=== PATIENT | female | born 1940 | race Caucasian/White ===

== ENCOUNTER 2018-10-15 15:37 | Emergency (ER) | payer OTHER ==
[~2018-10-15] VITALS: Ht 152.4 cm; Wt 56.8 kg
[2018-10-15 15:49] VITALS: Ht 152.4 cm; Wt 56.8 kg
--- NOTE | 2018-10-15 20:15 | ERD ---
ER Documentation Chief Complaint Chief Complaint COUGH X 2 DAYS HPI 78-year-old female, with history of diabetes and hypertension, presents to the emergency department, complaining of worsening of cough and upper respiratory symptoms for 2 days including productive cough, subjective fever, chills and general malaise. She denies chest pain, no shortness of breath no leg edema. ROS All systems reviewed and are negative except as per history of present illness. Medications Home Meds Active Scripts Acetaminophen* (Tylenol*) 325 Mg Tablet, 2 TAB PO Q8 PRN for PAIN AND OR ELEVATED TEMP, #20 TAB Prov:IAN LUEVANO MD 10/15/18 Benzonatate* (Tessalon Perle*) 100 Mg Capsule, 100 MG PO Q8H PRN for COUGH, #15 CAP Prov:IAN LUEVANO MD 10/15/18 Amoxicillin* (Amoxicillin*) 500 Mg Cap, 500 MG PO TID for 7 Days, CAP Prov:IAN LUEVANO MD 10/15/18 Allergies Allergies: Coded Allergies: No Known Allergies (Verified Allergy, Unknown, 10/15/18) PMhx/Soc Hx Alcohol Use: No Hx Substance Use: No Hx Tobacco Use: No Smoking Status: Never smoker Physical Exam Vitals Vital Signs Date Temp Pulse Resp B/P (MAP) Pulse Ox O2 O2 Flow FiO2 Time Delivery Rate 10/15/18 97.4 105 24 128/67 97 15:49 (87) Physical Exam Const: No acute distress Head: Atraumatic Eyes: Normal Conjunctiva ENT: Normal External Ears, Nose and Mouth. Neck: Full range of motion. No meningismus. Resp: Mild rhonchi to auscultation bilaterally Cardio: Regular rhythm, no murmurs Abd: Soft, non tender, non distended. Normal bowel sounds Skin: No petechiae or rashes Back: No midline or flank tenderness Ext: No cyanosis, or edema Neur: Awake and alert Psych: Normal Mood and Affect Results 24 hrs Current Medications Medications Dose Sig/Aroldo Start Time Status Last (Trade) Ordered Route PRN Stop Time Admin Dose Reason Admin 5 ml ONCE ONCE 10/15/18 DC 10/15/18 Acetaminophen PO 20:30 20:48 / 10/15/18 20:32 Hydrocodone Bitart (Lortab Liq) Procedures/MDM Vital signs stable, no respiratory distress. Differential diagnosis include but not limited to: Respiratory infection bacterial/viral/fungal. Influenza, croup, bronchiolitis, pneumonitis, allergies, GERD. Less likely foreign body aspiration, cardiac related. Physical examination and clinical presentation consistent most likely with viral infection with early superimposed bacterial infection. During the ED course the patient remained stable, no new complaints. Treatment options and clinical impression discussed with the patient and caregiver who agreed with management. The patient is stable to be treated outpatient and will be discharged home. Some side effects of prescribed medications (headache, rash, nausea, vomiting, diarrhea, interactions with other medications) were reviewed. The patient needs to follow up with the primary care provider in the next 48h. If symptoms persist, worsen or new symptoms develop, then patient should return to the ED immediately. Disclaimer: Inadvertent spelling and grammatical errors are likely due to EHR/dictation software use and do not reflect on the overall quality of patient care. Also, please note that the electronic time recorded on this note does not necessarily reflect the actual time of the patient encounter. Departure Diagnosis: Primary Impression: Cough Additional Impression: Fever Condition: Stable Additional Instructions: Muchas chen por [facility] para tomlinson servicio. Esperamos que en [place] visita a la connie de emergencia [place]inson problema medico haya sido solucionado y que se sienta mucho mejor. Para estar seguros que [place] mejoria sigue en proceso, le pedimos el favor de hacer shin stacey de seguimiento medico con [place] doctor primario en los proximos 2-4 gutierrez. Lleve con usted estos documentos y las medicinas recetadas. Si navi sintomas empeoran, NO SE ESPERE, por favor regrese a connie de emergencia INMEDIATAMENTE. En luci que usted no tenga un mdico de atencin primaria: Llame al mdico o clnica comunitaria de referencia que aparece abajo navid la s horas de consultorio para hacer shin stacey para que le vean. CLINICAS: [facility] [phone] [facility] [place] [id number] [phone] [facility] [facility] [phone] [place] [id number] [phone] [place] [id number] [phone] [facility]. [phone] IAN REAGAN MD Oct 15, 2018 20:15
[2018-10-15] MEDS ORDERED: ACETAMINOPHEN 325/HYDROC 7.5 15 ML CUP PO ONE (20:30)
[2018-10-15] MEDS ORDERED: AMOX500C2 PO (21:31)
[2018-10-15] MEDS ORDERED: BENZ-6 PO (21:31)
[2018-10-15] MEDS ORDERED: ACET325T33 PO (21:31)
[2018-10-15 21:40] VITALS: BP 121/70; PULSE 110; RESP 19
== END 2018-10-15 21:41 | disposition home or self-care (01) ==
LOC: FTE 15:37
DX: R05 Cough (principal); R50.9 Fever, unspecified; I10 Essential (primary) hypertension; E11.9 Type 2 diabetes mellitus without complications
CPT/HCPCS: 71046; 93005; Z7502; Z7610